=== PATIENT | male | born 1950 | race African-American/Black ===

== ENCOUNTER 2019-03-15 06:30 | Day surgery (SDC) | payer OTHER ==
[2019-03-15] MEDS ORDERED: NACL 0.9% 1000 ML 1,000 ML IV SCH (08:00)
[2019-03-15] MEDS ORDERED: DIPRIVAN 10 MG/ML IV ONE ×2 (08:24)
[2019-03-15] MEDS ORDERED: WATER FOR IRRIG STERILE IR ONE (08:28)
[2019-03-15] MEDS ORDERED: WATER FOR IRRIG STERILE ONE (08:28)
--- NOTE | 2019-03-15 08:50 | Anesthesia Day of Surgery ---
Anesthesia Day of Surgery - Day of Surgery Patient Examined: Yes Patient H&P Reviewed: Yes Patient is NPO: Yes Beta Blockers: No
--- NOTE | 2019-03-15 08:50 | Anesthesia Consultation ---
Anesthesia Consult and Med Hx Date of service: 03/15/19 - Airway Anesthetic Teeth Evaluation: Good ROM Head & Neck: Adequate Mental/Hyoid Distance: Adequate Mallampati Class: Class II Intubation Access Assessment: Good - Pre-Operative Health Status ASA Pre-Surgery Classification: ASA2 Proposed Anesthetic Plan: MAC - Pulmonary Hx Smoking: No Hx Asthma: No Hx Respiratory Symptoms: No SOB: No COPD: No Home Oxygen Therapy: No Hx Pneumonia: No Hx Sleep Apnea: No - Cardiovascular System Hx Hypertension: Yes Hx Coronary Artery Disease: No Hx Heart Attack/AMI: No Hx Angina: No Hx Percutaneous Transluminal Coronary Angioplasty (PTCA): No Hx Cardia Arrhythmia: No Hx Pacemaker: No Hx Internal Defibrillator: No Hx Valvular Heart Disease: No Hx Heart Murmur: No Hx Peripheral Vascular Disease: No - Central Nervous System Hx Neuromuscular Disorder: No Hx Seizures: No CVA: No Hx Back Pain: No Hx Psychiatric Problems: No - Gastrointestinal Hx Ulcer: No Hx Gastroesophageal Reflux Disease: No - Endocrine Hx Renal Disease: No Hx End Stage Renal Disease: No Hx Cirrhosis: No Hx Liver Disease: No Hx Insulin Dependent Diabetes: No Hx Non-Insulin Dependent Diabetes: No Hx Thyroid Disease: No Hx Hypothyroidism: No Hx Hyperthyroidism: No - Hematic Hx Anemia: No Hx Sickle Cell Disease: No - Other Systems Hx Alcohol Use: No Hx Substance Use: No Hx Cancer: No Hx Obesity: No
[2019-03-15] MEDS ORDERED: XYLOCAINE MPF 2% ONE (09:00)
--- NOTE | 2019-03-15 09:18 | Procedure Note ---
Date of procedure: 03/15/19 Pre-op diagnosis: Colon Polyp Screening Post-op diagnosis: other (Solitary Rectal Polyp (snare excised)/Trhee Transverse colon Polyps/ Proximal Colon Polyps) Procedure: Colonoscopy with snare polypectomy and cold biopsy Anesthesia: MAC Surgeon: HORACE AMEZCUA Estimated blood loss: minimal Pathology: list Specimen disposition: to lab Condition: stable Disposition: same day (Avoid aspirin and and NSAID for 5 days. Encourage fiber intake and follow up in 1 to 2 weeks ([phone]).)
--- NOTE | 2019-03-15 09:20 | Operative Report ---
INDICATIONS: This is a 68-year-old Yi gentleman with a family history of cancer. The patient's father had prostate cancer. The patient has an underlying history of hypertension, but is in otherwise good health. Colonoscopy was done as part of colon polyp screening. The patient gives no prior history of colonoscopy. DESCRIPTION OF PROCEDURE: The procedure was done after getting informed consent with MAC anesthesia. Initial rectal exam was unremarkable. Instrument was passed through the rectum onto the cecum, which was identified with ileocecal valve and appendiceal orifice. Visualization was fair to good. The scope was retroflexed in the cecum. No additional pathology was noted. The cecum and ascending colon showed normal mucosa other than for the presence of some proximal colon diverticula. In the proximal transverse colon, there were 3 polyps noted, 2 removed by cold biopsy and 1 by cold snare polypectomy and retrieved. The remaining part of the transverse and the descending colon and sigmoid showed normal mucosa. There was 11-12 mm sessile polyp noted in the rectum, which was removed by snare polypectomy with application of heat and then retrieved. There was minimal bleeding from the polypectomy sites and no complications associated with the procedure. ASSESSMENT: Colon polyp screening, family history of cancer. The patient's father had prostate cancer, multiple colon polyps, one in the rectum, which was removed by snare excision with application of heat and 3 in the transverse colon, 1 by cold snare polypectomy and two that were removed by cold biopsy and proximal colon diverticular disease. The procedure was done in the GI lab with assistance of the GI lab team, which included Kathy CRANE and Patricia betancourt and with the assistance of anesthesia. The patient will be asked to avoid aspirin and aspirin-related products for the next few days. Follow up in the office in 1-2 weeks' time and to encourage fiber supplements and resume home medications besides any aspirin and aspirin-related products for the next few days. JOB# [id number] JOSE ALEJANDRO/TIFFANIE
[2019-03-15 09:46] VITALS: BP 126/76
== END 2019-03-15 06:31 | disposition home or self-care (01) ==
LOC: GIO 06:30
DX: Z12.11 Encounter for screening for malignant neoplasm of colon (principal); D12.3 Benign neoplasm of transverse colon; K62.1 Rectal polyp; K57.30 Diverticulosis of large intestine without perforation or abscess without bleeding; I10 Essential (primary) hypertension; Z87.891 Personal history of nicotine dependence; Z79.899 Other long term (current) drug therapy; Z80.0 Family history of malignant neoplasm of digestive organs; Z80.42 Family history of malignant neoplasm of prostate; Z98.890 Other specified postprocedural states
CPT/HCPCS: 45380; 45385; 88305; J2704; J7030